=== PATIENT | female | born 1980 | race Caucasian/White ===

== ENCOUNTER 2020-07-06 05:06 | Emergency (ER) | payer SELFPAY ==
[2020-07-06 05:59] LABS: Absolute Lymphocytes (CBC) 2.1 K/uL (0.7-4.9); Basophils % 0.4 % (0-1.3); Lymphocytes % 28.8 % (15.3-44.8); RBC Red Blood Cell Count 4.67 M/uL (3.86-4.86)
[2020-07-06 06:05] LABS: Urine Blood 1+ (Negative); Urine Glucose Negative (Negative); Urine Protein Negative (Negative); Urine pH 6.5 (5.0-7.0)
[2020-07-06] MEDS ORDERED: ONDANSETRON 4 MG/2 ML VIAL ONE ×2 (06:12→08:21)
[2020-07-06] MEDS ORDERED: MORPHINE 4 MG/ML SYR ONE (06:12)
[2020-07-06] MEDS ORDERED: FAMOTIDINE 20 MG/2 ML VIAL IV ONE (06:12)
[2020-07-06] MEDS ORDERED: NA CHLORIDE 0.9% 1,000 ML ONE ×2 (06:12→08:30)
[2020-07-06 06:22] LABS: ALT/SGPT 28 U/L (12-78); AST/SGOT 17 U/L (15-37); Albumin 3.6 g/dL (3.4-5.0); Alkaline Phosphatase 110 U/L (45-117); BUN Blood Urea Nitrogen 13 mg/dL (7-18); Bicarbonate 27 mmol/L (21-32); Bilirubin Direct 0.1 mg/dL (0-0.2); Bilirubin Total 0.4 mg/dL (0.2-1.0); Glucose Level 101 mg/dL (74-106); Lipase 100 U/L (73-393); Potassium 3.2 mmol/L (3.5-5.1); Sodium Level 143 mmol/L (136-145)
[2020-07-06] MEDS ORDERED: KCL 20 MEQ/100 mL IVPB 20 MEQ/100 ML BAG IV ONE (07:07)
--- NOTE | 2020-07-06 08:13 | EDPHYS ---
Physician Documentation [facility] Name: Isa Suarez Age: 39 yrs Sex: Female : 1980 Arrival Date: 07/06/2020 Time: 05:09 Bed 20 Private MD: FINESSE Physician Luis F Bhatt HPI: 07/06 05:46 This 39 yrs old Female presents to ER via Ambulatory with complaints of ma2 Nausea/Vomiting/Diarrhea. 05:46 The patient presents to the emergency department with nausea, vomiting, diarrhea. ma2 Onset: The symptoms/episode began/occurred gradually, 1 day(s) ago. Associated signs and symptoms: Pertinent negatives: belching, diarrhea, fever, GI bleeding. Severity of symptoms: At their worst the symptoms were moderate in the emergency department the symptoms are unchanged. The patient has experienced similar episodes in the past. 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 - Social history:: Smoking status: Patient reports the use of cigarette tobacco products, smokes one-half pack cigarettes per day. - Family history:: not pertinent. ROS: 05:46 Constitutional: Negative for fever, chills, and weight loss. ma2 05:46 All other systems are negative. Exam: 05:46 Constitutional: This is a well developed, well nourished patient who is awake, alert, ma2 and in no acute distress. Neck: Trachea midline, no thyromegaly or masses palpated, and no cervical lymphadenopathy. Supple, full range of motion without nuchal rigidity, or vertebral point tenderness. No Meningismus. Chest/axilla: Normal chest wall appearance and motion. Nontender with no deformity. No lesions are appreciated. Cardiovascular: Regular rate and rhythm with a normal S1 and S2. No gallops, murmurs, or rubs. Normal PMI, no JVD. No pulse deficits. Respiratory: Lungs have equal breath sounds bilaterally, clear to auscultation and percussion. No rales, rhonchi or wheezes noted. No increased work of breathing, no retractions or nasal flaring. Abdomen/GI: mildly tender rlq, otherwise non-tender in other quadrants, with normal bowel sounds. No distension or tympany. No guarding or rebound. Back: No spinal tenderness. No costovertebral tenderness. Full range of motion. Skin: Warm, dry with normal turgor. Normal color with no rashes, no lesions, and no evidence of cellulitis. MS/ Extremity: Pulses equal, no cyanosis. Neurovascular intact. Full, normal range of motion. Neuro: Awake and alert, GCS 15, oriented to person, place, time, and situation. Cranial nerves II-XII grossly intact. Motor strength 5/5 in all extremities. Sensory grossly intact. Cerebellar exam normal. Normal gait. Vital Signs: 05:20 BP 113 / 75; Pulse 95; Resp 18 S; Temp 98.1(O); Pulse Ox 100% on R/A; Weight 45.36 kg bb (R); Height 5 ft. 6 in. (167.64 cm) (R); Pain 7/10; 08:07 BP 104 / 62; Pulse 68; Resp 18; Pulse Ox 100% ; tr6 09:00 BP 101 / 80; Pulse 82; Resp 18; Pulse Ox 96% ; tr6 05:20 Body Mass Index 16.14 (45.36 kg, 167.64 cm) bb MDM: 05:17 Patient medically screened. ma2 08:10 Differential diagnosis: Nonspecific abd pain, gastritis, cholecystitis, pancreatitis, andrew viral gastroenteritis, gastroenteritis. Data reviewed: vital signs, nurses notes, lab test result(s), radiologic studies, CT scan. Data interpreted: library monitor: rate is 68 beats/min, rhythm is regular, Pulse oximetry: on room air is 100 %. Counseling: I had a detailed discussion with the patient and/or guardian regarding: the historical points, exam findings, and any diagnostic results supporting the discharge/admit diagnosis, lab results, radiology results, the need for outpatient follow up, for definitive care, 07/06 05:45 Order name: Basic Metabolic Panel; Complete Time: 06:26 md2 07/06 05:45 Order name: CBC with Diff; Complete Time: 06:19 ma2 07/06 05:45 Order name: Hepatic Function; Complete Time: 06:26 ma2 07/06 05:45 Order name: Lipase; Complete Time: 06:26 ma2 07/06 05:45 Order name: CT Abd/Pelvis - IV Contrast Only ma2 07/06 06:05 Order name: Urine Dipstick-Ancillary EDMS 07/06 05:45 Order name: IV Saline Lock; Complete Time: 05:49 ma2 07/06 05:45 Order name: NPO; Complete Time: 05:49 ma2 07/06 05:46 Order name: Urine Dipstick-Ancillary (obtain specimen); Complete Time: 06:08 ma2 07/06 05:46 Order name: Urine Test (obtain specimen); Complete Time: 06:08 ma2 Administered Medications: 05:57 Drug: Zofran (Ondansetron) 4 mg Route: IVP; Site: left forearm; jm8 07:45 Follow up: Response: No adverse reaction; Nausea unchanged tr6 05:57 Drug: NS 0.9% 1000 ml Route: IV; Rate: 1000 ml; Site: left forearm; jm8 07:45 Follow up: IV Status: Completed infusion; IV Intake: 1000ml tr6 09:09 Follow up: IV Status: Completed infusion; IV Intake: 1000ml tr6 05:57 Drug: Pepcid (famotidine) 20 mg Route: IVP; Site: left forearm; jm8 05:58 Drug: morphine 4 mg Route: IVP; Site: left forearm; jm8 07:44 Follow up: Response: No adverse reaction; Pain is decreased tr6 06:53 Drug: Potassium Chloride 20 mEq Route: IV; Rate: calculated rate; Site: left forearm; jm8 09:09 Follow up: IV Status: Completed infusion; IV Intake: 50ml tr6 08:07 Drug: Zofran (Ondansetron) 4 mg Route: IVP; Site: left forearm; tr6 09:08 Follow up: Response: No adverse reaction; Nausea is decreased tr6 Disposition: 07/06/20 08:12 Discharged to Home. Impression: Vomiting, Diarrhea, unspecified, Hypokalemia. - Condition is Stable. - Discharge Instructions: Diarrhea, Adult, Nausea and Vomiting, Adult, [id number]-[id number], Diarrhea, Adult, Hmrr-yw-Cnyh, Hypokalemia, Food Choices to Help Relieve Diarrhea, Adult. - Prescriptions for Zofran 4 mg Oral Tablet - take 1 tablet by ORAL route every 12 hours As needed; 20 tablet. Pepcid 20 mg Oral Tablet - take 1 tablet by ORAL route once daily; 20 tablet. Bentyl 20 mg Oral Tablet - take 1 tablet by ORAL route every 6 hours As needed; 20 tablet. - Medication Reconciliation Form, Thank You Letter, Antibiotic Education, Prescription Opioid Use, Work release form form. - Follow up: Private Physician; When: 2 - 3 days; Reason: Recheck today's complaints, Continuance of care, Re-evaluation by your physician. Follow up: Cee Juárez; When: 2 - 3 days; Reason: Recheck today's complaints, Continuance of care, Re-evaluation by your physician. - Problem is new. - Symptoms have improved. Signatures: Dispatcher [employer] EDLuis F Ledezma MD MD cha Ballard, Brenda, RN RN Isamar Heredia MD MD md2 Liborio Montoya RN RN 8 Marcelina Rojas RN RN tr6 Corrections: (The following items were deleted from the chart) 09:43 08:12 07/06/2020 08:12 Discharged to Home. Impression: Vomiting; Diarrhea, unspecified; tr6 Hypokalemia. Condition is Stable. Discharge Instructions: Food Choices to Help Relieve Diarrhea, Adult, Diarrhea, Adult, Nausea and Vomiting, Adult, Obxj-le-Optz, Diarrhea, Adult, Ojpe-do-Oevq, Hypokalemia. Prescriptions for Zofran 4 mg Oral Tablet - take 1 tablet by ORAL route every 12 hours As needed; 20 tablet, Pepcid 20 mg Oral Tablet - take 1 tablet by ORAL route once daily; 20 tablet, Bentyl 20 mg Oral Tablet - take 1 tablet by ORAL route every 6 hours As needed; 20 tablet. and Forms are Medication Reconciliation Form, Thank You Letter, Antibiotic Education, Prescription Opioid Use. Follow up: Private Physician; When: 2 - 3 days; Reason: Recheck today's complaints, Continuance of care, Re-evaluation by your physician. Follow up: Cee Juárez; When: 2 - 3 days; Reason: Recheck today's complaints, Continuance of care, Re-evaluation by your physician. Problem is new. Symptoms have improved. andrew
--- NOTE | 2020-07-06 08:13 | ER ---
Nurse's Notes [facility] Name: Isa Suarez Age: 39 yrs Sex: Female : 1980 Arrival Date: 07/06/2020 Time: 05:09 Bed 20 Private MD: Diagnosis: Vomiting;Diarrhea, unspecified;Hypokalemia Presentation: 07/06 05:20 Chief complaint: Patient states: she has been having diarrhea x 2 days and woke up this bb morning with uncontrollable vomiting. Coronavirus screen: At this time, the client does not indicate any symptoms associated with coronavirus-19. Ebola Screen: No symptoms or risks identified at this time. Initial Sepsis Screen: Does the patient meet any 2 criteria? No. Patient's initial sepsis screen is negative. Does the patient have a suspected source of infection? No. Patient's initial sepsis screen is negative. Risk Assessment: Do you want to hurt yourself or someone else? Patient reports no desire to harm self or others. Onset of symptoms was July 03, 2020. 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 - Social history:: Smoking status: Patient reports the use of cigarette tobacco products, smokes one-half pack cigarettes per day. - Family history:: not pertinent. Screenin:36 Abuse screen: Denies threats or abuse. Denies injuries from another. Nutritional jm8 screening: No deficits noted. Tuberculosis screening: No symptoms or risk factors identified. Fall Risk None identified. Assessment: 05:34 General: Appears in no apparent distress. uncomfortable, Behavior is calm, cooperative, jm8 appropriate for age. Pain:. 05:34 Pain: Complains of pain in abdomen Pain currently is 7 out of 10 on a pain scale. Pain jm8 began 2-3 days ago. Noted to be grimacing, guarding. Neuro: No deficits noted. Level of Consciousness is awake, alert, obeys commands, Oriented to person, place, time. Cardiovascular: No deficits noted. Respiratory: No deficits noted. Airway is patent Trachea midline Respiratory effort is even, unlabored, Respiratory pattern is regular. GI: Abdomen is flat, Pt is actively vomiting dry heaving Reports lower abdominal pain, upper abdominal pain, diarrhea, nausea, Pain is 7 out of 10 on a pain scale. vomiting, since 2 days ago. : No deficits noted. EENT: No deficits noted. Derm: No deficits noted. Musculoskeletal: No deficits noted. 07:15 Reassessment: assumed care of pt resting comfortably in bed. pt states that IV site is tr6 painful where potassium is running. infusion slowed. pt tolerated well. 09:09 Reassessment: Patient appears in no apparent distress at this time. Patient and/or tr6 family updated on plan of care and expected duration. Pain level reassessed. Patient is alert, oriented x 3, equal unlabored respirations, skin warm/dry/pink. discharge instructions reviewed with pt. pt verbalized understanding. Vital Signs: 05:20 BP 113 / 75; Pulse 95; Resp 18 S; Temp 98.1(O); Pulse Ox 100% on R/A; Weight 45.36 kg bb (R); Height 5 ft. 6 in. (167.64 cm) (R); Pain 7/10; 08:07 BP 104 / 62; Pulse 68; Resp 18; Pulse Ox 100% ; tr6 09:00 BP 101 / 80; Pulse 82; Resp 18; Pulse Ox 96% ; tr6 05:20 Body Mass Index 16.14 (45.36 kg, 167.64 cm) ED Course: 05:09 Patient arrived in ED. bp1 05:17 Isamar Zuniga MD is Attending Physician. ma2 05:28 Triage completed. bb 05:30 Arm band placed on Patient placed in an exam room, on a stretcher, on pulse oximetry. bb Family accompanied patient. 05:37 Patient has correct armband on for positive identification. Bed in low position. Call jm8 light in reach. Side rails up X2. Adult w/ patient. 06:07 Inserted saline lock: 20 gauge in left forearm, using aseptic technique. jm8 06:48 CT Abd/Pelvis - IV Contrast Only In Process Unspecified. EDMS 07:17 Attending Physician role handed off by Isamar Zuniga MD andrew 07:17 Luis F Bhatt MD is Attending Physician. andrew 07:46 No provider procedures requiring assistance completed. tr6 08:12 Cee Juárez MD is Referral Physician. andrew 09:08 IV discontinued. tr6 Administered Medications: 05:57 Drug: Zofran (Ondansetron) 4 mg Route: IVP; Site: left forearm; 8 07:45 Follow up: Response: No adverse reaction; Nausea unchanged tr6 05:57 Drug: NS 0.9% 1000 ml Route: IV; Rate: 1000 ml; Site: left forearm; jm8 07:45 Follow up: IV Status: Completed infusion; IV Intake: 1000ml tr6 09:09 Follow up: IV Status: Completed infusion; IV Intake: 1000ml tr6 05:57 Drug: Pepcid (famotidine) 20 mg Route: IVP; Site: left forearm; jm8 05:58 Drug: morphine 4 mg Route: IVP; Site: left forearm; jm8 07:44 Follow up: Response: No adverse reaction; Pain is decreased tr6 06:53 Drug: Potassium Chloride 20 mEq Route: IV; Rate: calculated rate; Site: left forearm; jm8 09:09 Follow up: IV Status: Completed infusion; IV Intake: 50ml tr6 08:07 Drug: Zofran (Ondansetron) 4 mg Route: IVP; Site: left forearm; tr6 09:08 Follow up: Response: No adverse reaction; Nausea is decreased tr6 Intake: 07:45 IV: 1000ml; Total: 1000ml. tr6 09:09 IV: 50ml; Total: 1050ml. tr6 09:09 IV: 1000ml; Total: 2050ml. tr6 Outcome: 08:12 Discharge ordered by . andrew 09:08 Discharged to home ambulatory. tr6 09:08 Condition: good 09:08 Discharge instructions given to patient. 09:43 Patient left the ED. tr6 Signatures: Dispatcher [employer] EDMS Luis F Bhatt MD MD cha Ballard, Brenda, RN RN bb Alzahri, Mohammad, MD MD [facility] Hetal Thorpe Joseph RN RN [facility] Marcelina Rojas RN RN tr6
--- NOTE | 2020-07-06 08:27 | RAD REPORT ---
EXAM DESCRIPTION: CTAbdomen Pelvis W Contrast - 07/06/2020 6:48 am CLINICAL HISTORY: Abdominal pain. ABD PAIN COMPARISON: Abdomen Pelvis W Contrast dated 04/26/2016; Abdomen Pelvis W Contrast dated 06/17/2015 TECHNIQUE: Biphasic CT imaging of the abdomen and pelvis was performed with 100 ml non-ionic IV cont rast. All CT scans are performed using dose optimization technique as appropriate and may include automated exposure control or mA/KV adjustment according to patient size. FINDINGS: The lung bases are clear. The liver, spleen, pancreas, adrenal glands and right kidney are within normal limits. Tiny punctate nonobstructing left renal calculus. No bowel obstruction, free air, free fluid or abscess. The appendix is normal. No evidence of signi ficant lymphadenopathy. No suspicious bony findings. IMPRESSION: No acute intra-abdominal or pelvic finding. Punctate nonobstructing renal calculus.
[2020-07-06 10:39] VITALS: TEMP 98.1
[2020-07-06 10:40] VITALS: BP 101/80; O2SAT 96
== END 2020-07-06 09:43 | disposition home or self-care (01) ==
LOC: ER 05:06
DX: E87.6 Hypokalemia (principal); R19.7 Diarrhea, unspecified; F17.210 Nicotine dependence, cigarettes, uncomplicated; Z88.1 Allergy status to other antibiotic agents; Z88.8 Allergy status to other drugs, medicaments and biological substances
CPT/HCPCS: 36415; 74177; 80048; 80076; 81003; 83690; 85025; 96361; 96365; 96366; 96375; 99284; J2405; J3480; J7030; Q9967

== ENCOUNTER 2021-03-07 02:36 | Emergency (ER) | payer SELFPAY ==
[2021-03-07] MEDS ORDERED: FAMOTIDINE 20 MG/2 ML VIAL IV ONE (03:22)
[2021-03-07] MEDS ORDERED: MORPHINE 4 MG/ML SYR ONE (03:22)
[2021-03-07] MEDS ORDERED: ONDANSETRON 4 MG/2 ML VIAL ONE (03:22)
[2021-03-07] MEDS ORDERED: NA CHLORIDE 0.9% 1,000 ML ONE (03:22)
[2021-03-07 03:25] LABS: Absolute Lymphocytes (CBC) 0.2 K/uL (0.7-4.9); Hematocrit 41.2 % (36.0-45.0); Lymphocytes % 2.2 % (15.3-44.8); MPV 8.9 fL (7.6-11.3); RBC Red Blood Cell Count 4.54 M/uL (3.86-4.86)
[2021-03-07 03:42] LABS: ALT/SGPT 19 U/L (12-78); AST/SGOT 13 U/L (15-37); Albumin 3.7 g/dL (3.4-5.0); Alkaline Phosphatase 92 U/L (45-117); BUN Blood Urea Nitrogen 10 mg/dL (7-18); Bicarbonate 25 mmol/L (21-32); Bilirubin Direct < 0.1 mg/dL (0-0.2); Bilirubin Total 0.3 mg/dL (0.2-1.0); Glucose Level 117 mg/dL (74-106); Lipase 44 U/L (73-393); Potassium 3.5 mmol/L (3.5-5.1); Protein, Total 7.2 g/dL (6.4-8.2); Sodium Level 136 mmol/L (136-145)
[2021-03-07 04:00] LABS: Urine Blood 1+ (Negative); Urine Glucose Negative (Negative); Urine Protein Negative (Negative); Urine pH 6.5 (5.0-7.0)
[2021-03-07 04:14] LABS: Blood Morphology Comment NOT SEEN (NOT SEEN); Platelet Estimate ADEQ
[2021-03-07] MEDS ORDERED: KETOROLAC 30 MG/ML INJ ONE (05:38)
--- NOTE | 2021-03-07 08:02 | EDPHYS ---
Physician Documentation [facility] Name: Isa Suarez Age: 40 yrs Sex: Female : 1980 Arrival Date: 03/07/2021 Time: 02:39 Bed 14 Private MD: ED Physician Haseeb Nevarez HPI: 03/07 03:09 This 40 yrs old Female presents to ER via Ambulatory with complaints of +[id number], Body mh7 aches, Fever, Vomiting. 03:09 The patient presents to the emergency department with nausea, that is moderate, mh7 vomiting, that is intermittent, described as clear fluid. Onset: The symptoms/episode began/occurred last night. 03:09 Possible causes: Covid. mh7 03:09 The symptoms are aggravated by nothing. The symptoms are alleviated by nothing. mh7 Associated signs and symptoms: Pertinent positives: fever, nausea, vomiting, Body aches, Pertinent negatives: abdominal pain, anorexia, belching, constipation, dysuria, flatulence, GI bleeding, hematuria, vaginal discharge. Severity of symptoms: At their worst the symptoms were moderate last night, in the emergency department the symptoms are unchanged. 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 Flu vaccine is not up to date. - Social history:: Smoking status: Patient reports the use of cigarette tobacco products, smokes one pack cigarettes per day. ROS: 03:09 Eyes: Negative for injury, pain, redness, and discharge, ENT: Negative for injury, mh7 pain, and discharge, Neck: Negative for injury, pain, and swelling, Cardiovascular: Negative for chest pain, palpitations, and edema, Respiratory: Negative for shortness of breath, cough, wheezing, and pleuritic chest pain, Back: Negative for injury and pain, : Negative for injury, bleeding, discharge, and swelling, MS/Extremity: Negative for injury and deformity, Skin: Negative for injury, rash, and discoloration, Neuro: Negative for headache, weakness, numbness, tingling, and seizure, Psych: Negative for depression, anxiety, suicide ideation, homicidal ideation, and hallucinations, Allergy/Immunology: Negative for hives, rash, and allergies, Endocrine: Negative for neck swelling, polydipsia, polyuria, polyphagia, and marked weight changes, Hematologic/Lymphatic: Negative for swollen nodes, abnormal bleeding, and unusual bruising. Exam: 03:09 Head/Face: Normocephalic, atraumatic. Eyes: Pupils equal round and reactive to light, mh7 extra-ocular motions intact. Lids and lashes normal. Conjunctiva and sclera are non-icteric and not injected. Cornea within normal limits. Periorbital areas with no swelling, redness, or edema. Neck: Trachea midline, no thyromegaly or masses palpated, and no cervical lymphadenopathy. Supple, full range of motion without nuchal rigidity, or vertebral point tenderness. No Meningismus. Chest/axilla: Normal chest wall appearance and motion. Nontender with no deformity. No lesions are appreciated. Cardiovascular: Regular rate and rhythm with a normal S1 and S2. No gallops, murmurs, or rubs. Normal PMI, no JVD. No pulse deficits. Respiratory: Lungs have equal breath sounds bilaterally, clear to auscultation and percussion. No rales, rhonchi or wheezes noted. No increased work of breathing, no retractions or nasal flaring. Abdomen/GI: Soft, non-tender, with normal bowel sounds. No distension or tympany. No guarding or rebound. No evidence of tenderness throughout. Back: No spinal tenderness. No costovertebral tenderness. Full range of motion. Skin: Warm, dry with normal turgor. Normal color with no rashes, no lesions, and no evidence of cellulitis. MS/ Extremity: Pulses equal, no cyanosis. Neurovascular intact. Full, normal range of motion. Neuro: Awake and alert, GCS 15, oriented to person, place, time, and situation. Cranial nerves II-XII grossly intact. Motor strength 5/5 in all extremities. Sensory grossly intact. Cerebellar exam normal. Normal gait. Psych: Awake, alert, with orientation to person, place and time. Behavior, mood, and affect are within normal limits. 03:09 Constitutional: The patient appears in no acute distress, alert, awake, uncomfortable. Vital Signs: 02:46 BP 122 / 73; Pulse 110; Resp 22; Temp 100.2(O); Pulse Ox 98% on R/A; Weight 44.45 kg; tw5 Height 5 ft. 6 in. (167.64 cm); Pain 10/10; 02:59 BP 123 / 70; Pulse 96; Resp 18; Pulse Ox 100% on R/A; ic1 03:00 Temp 99(O); ic1 04:51 BP 118 / 72; Pulse 87; Resp 16; Pulse Ox 97% on R/A; ic1 06:10 BP 112 / 65; Pulse 100; Resp 18; Pulse Ox 99% on R/A; ic1 02:46 Body Mass Index 15.82 (44.45 kg, 167.64 cm) tw5 MDM: 07:02 Patient medically screened. rn 07:24 ED course: Patient signed out to me by Dr. Horn this morning. Patient pending CT rn abdomen pelvis and plan for Dr. Horn was to discharge if no acute findings. 07:59 Differential diagnosis: viral gastroenteritis, gastroenteritis, COVID, viral syndrome, rn kidney stone. Data reviewed: vital signs, nurses notes, lab test result(s), radiologic studies, CT scan, and as a result, I will discharge patient. Data interpreted: Pulse oximetry: on room air is 99 %. Interpretation: normal. Counseling: I had a detailed discussion with the patient and/or guardian regarding: the historical points, exam findings, and any diagnostic results supporting the discharge/admit diagnosis, lab results, radiology results, the need for outpatient follow up, to return to the emergency department if symptoms worsen or persist or if there are any questions or concerns that arise at home. Special discussion: I discussed with the patient/guardian in detail that at this point there is no indication for admission to the hospital. It is understood, however, that if the symptoms persist or worsen the patient needs to return immediately for re-evaluation. 03/07 03:06 Order name: Basic Metabolic Panel; Complete Time: 04:45 03/07 03:06 Order name: CBC with Diff; Complete Time: 04:45 03/07 03:06 Order name: Hepatic Function; Complete Time: 04:45 03/07 03:06 Order name: Lipase; Complete Time: 04:45 /05 03:25 Order name: Manual Differential; Complete Time: 04:45 EDMS 03/07 03:59 Order name: Urine Dipstick-Ancillary; Complete Time: 04:45 [facility] 03/07 03:06 Order name: IV Saline Lock; Complete Time: 03:17 7 03/07 03:06 Order name: Labs collected and sent; Complete Time: 03:17 [facility] 03/07 04:48 Order name: CT Abd/Pelvis - IV Contrast Only [facility] 03/07 03:06 Order name: Urine Dipstick-Ancillary (obtain specimen); Complete Time: 07:44 7 Administered Medications: 03:23 Drug: NS 0.9% 1000 ml Route: IV; Rate: 1000 ml; Site: right antecubital; ic1 03:30 Drug: morphine 4 mg Route: IVP; Site: right antecubital; ic1 03:30 Drug: Zofran (Ondansetron) 4 mg Route: IVP; Rate: bolus; Site: right antecubital; ic1 03:30 Drug: Pepcid (famotidine) 20 mg Route: IVP; Site: right antecubital; ic1 05:40 Drug: Ketorolac 15 mg Route: IVP; Site: right antecubital; ic1 Disposition Summary: 03/07/21 08:01 Discharge Ordered Location: Home rn Problem: new rn Symptoms: have improved rn Condition: Stable rn Diagnosis - SARS-associated coronavirus as the cause of diseases classified elsewhere rn Followup: rn - With: Private Physician - When: As needed - Reason: Recheck today's complaints, Re-evaluation by your physician Discharge Instructions: - Discharge Summary Sheet rn - COVID-19 rn - 10 Things You Can Do to Manage Your COVID-19 Symptoms at Home - [facility] rn - Viral Illness, Adult rn - Prevent the Spread of COVID-19 if You Are Sick - [facility] rn Forms: - Medication Reconciliation Form rn - Thank You Letter rn - Antibiotic machine turner - Prescription Opioid Use rn - Family Work Release ll1 Prescriptions: - ondansetron 4 mg Oral tablet,disintegrating - take 1 tablet by ORAL route every 8 hours As needed; 15 tablet; Refills: 0, rn Product Selection Permitted - Cyclobenzaprine 10 mg Oral Tablet - take 1 tablet by ORAL route every 8 hours As needed; 10 tablet; Refills: 0, rn Product Selection Permitted Signatures: Dispatcher [employer] EDMS Haseeb Nevarez MD MD rn Holmes, Maurice, MD MD [facility] Marcelina Coburn 5 Milka Mantilla RN RN ic1 Corrections: (The following items were deleted from the chart) 02:50 02:49 PSHx: None; tw 07:25 07:24 ED course: Patient signed out to me by Dr. Horn this morning. Patient. rn rn
--- NOTE | 2021-03-07 08:02 | ER ---
Nurse's Notes [facility] Name: Isa Suarez Age: 40 yrs Sex: Female : 1980 Arrival Date: 03/07/2021 Time: 02:39 Bed 14 Private MD: Diagnosis: SARS-associated coronavirus as the cause of diseases classified elsewhere Presentation: 03/07 02:46 Chief complaint: Patient states: " My whole body aches, my hips feel like they are on tw5 fire. Vomiting and nausea that started around 8 PM yesterday. My head hurts.". Chief complaint: Patient states she did a home test today that was positive. Coronavirus screen: Vaccine status: Patient reports being unvaccinated. Ebola Screen: Patient negative for fever greater than or equal to 101.5 degrees Fahrenheit, and additional compatible Ebola Virus Disease symptoms Patient denies exposure to infectious person. Patient denies travel to an Ebola-affected area in the 21 days before illness onset. Initial Sepsis Screen: Does the patient meet any 2 criteria? HR > 90 bpm. Does the patient have a suspected source of infection? No. Patient's initial sepsis screen is negative. Risk Assessment: Do you want to hurt yourself or someone else? Patient reports no desire to harm self or others. Onset of symptoms was March 06, 2021 at 20:00. 02:46 Method Of Arrival: Ambulatory tw 02:46 Acuity: VON 3 tw5 Triage Assessment: 02:49 General: Appears uncomfortable, ill, Behavior is restless. Pain: Pain currently is 10 tw5 out of 10 on a pain scale. GI: Reports nausea, vomiting. 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 Flu vaccine is not up to date. - Social history:: Smoking status: Patient reports the use of cigarette tobacco products, smokes one pack cigarettes per day. Screenin:50 Abuse screen: Denies threats or abuse. Denies injuries from another. Nutritional tw5 screening: No deficits noted. Tuberculosis screening: No symptoms or risk factors identified. Fall Risk No fall in past 12 months (0 pts). Assessment: 03:00 General: Appears in no apparent distress. uncomfortable, Behavior is calm, cooperative. ic1 Pain: Complains of pain in abdomen, right arm, left arm, right leg, left leg, back of left arm, back of right arm, posterior chest, back of left leg, back of right leg and back. Neuro: No deficits noted. Cardiovascular: No deficits noted. Respiratory: No deficits noted. GI: Abdomen is round non-distended. : No deficits noted. EENT: No deficits noted. Derm: No deficits noted. Musculoskeletal: No deficits noted. 05:31 Reassessment: Patient states symptoms have not improved. ic1 Vital Signs: 02:46 BP 122 / 73; Pulse 110; Resp 22; Temp 100.2(O); Pulse Ox 98% on R/A; Weight 44.45 kg; tw5 Height 5 ft. 6 in. (167.64 cm); Pain 10/10; 02:59 BP 123 / 70; Pulse 96; Resp 18; Pulse Ox 100% on R/A; ic1 03:00 Temp 99(O); ic1 04:51 BP 118 / 72; Pulse 87; Resp 16; Pulse Ox 97% on R/A; ic1 06:10 BP 112 / 65; Pulse 100; Resp 18; Pulse Ox 99% on R/A; ic1 02:46 Body Mass Index 15.82 (44.45 kg, 167.64 cm) tw5 ED Course: 02:39 Patient arrived in ED. wm 02:48 Triage completed. tw5 02:49 Arm band placed on right wrist. tw5 02:51 Patient has correct armband on for positive identification. tw5 02:52 Luis Horn MD is Attending Physician. mh7 03:18 Inserted saline lock: 20 gauge in right antecubital area, using aseptic technique. ic1 03:18 CBC with Diff Sent. ic1 03:18 Basic Metabolic Panel Sent. ic1 03:18 Hepatic Function Sent. ic1 03:18 Lipase Sent. ic1 05:31 CT Abd/Pelvis - IV Contrast Only In Process Unspecified. EDMS 06:52 Door closed. Noise minimized. Lights dimmed. Warm blanket given. ic1 07:02 Attending Physician role handed off by Luis Horn MD rn 07:02 Haseeb Nevarez MD is Attending Physician. rn 07:13 Hanna Cabello RN is Primary Nurse. jh6 07:23 Primary Nurse role handed off by Hanna Cabello RN cb5 07:23 Jyothi Branch, RN is Primary Nurse. 5 08:33 No provider procedures requiring assistance completed. phillips 08:34 IV discontinued, intact, Pressure dressing applied. phillips Administered Medications: 03:23 Drug: NS 0.9% 1000 ml Route: IV; Rate: 1000 ml; Site: right antecubital; ic1 03:30 Drug: morphine 4 mg Route: IVP; Site: right antecubital; ic1 03:30 Drug: Zofran (Ondansetron) 4 mg Route: IVP; Rate: bolus; Site: right antecubital; ic1 03:30 Drug: Pepcid (famotidine) 20 mg Route: IVP; Site: right antecubital; ic1 05:40 Drug: Ketorolac 15 mg Route: IVP; Site: right antecubital; ic1 Outcome: 08:01 Discharge ordered by MD. rn 08:33 Discharged to home ambulatory. phillips 08:33 Condition: good 08:33 Discharge instructions given to patient, Prescriptions given X 2. 08:34 Patient left the ED. phillips Signatures: Dispatcher [employer] EDMS Haseeb Nevarez MD MD rn Holmes, Maurice, MD MD Heather Bai Marcelina Coburn [facility] Hanna Cabello RN RN jh6 Karen Zheng RN RN ha Creggett, Iesha, RN RN ic1 Jyothi Branch, RN RN 5 Corrections: (The following items were deleted from the chart) 02:50 02:49 PSHx: None; tw5 tw5
[2021-03-07 08:55] VITALS: TEMP 99
[2021-03-07 08:58] VITALS: BP 112/65; O2SAT 99
--- NOTE | 2021-03-07 14:02 | RAD REPORT ---
EXAM DESCRIPTION: CT - Abdomen Pelvis W Contrast - 03/07/2021 7:35 am CLINICAL HISTORY: 40 years Female NAUSEA / VOMITING TECHNIQUE: Non contrast and contrast enhanced CT of the abdomen and pelvis with coronal and sagittal reformats. All CT scans at this facility use dose modulation, iterative reconstruction, and/or weigh t based dosing when appropriate to reduce radiation dose to as low as reasonably achievable. COMPARISON: 07/06/2020. FINDINGS: Lower chest: Lung bases are clear. Abdomen/Pelvis: Liver: No focal lesion. Gallbladder: No calcified stone. Pancreas: Within normal limits. Spleen: Within normal limits. Kidney: Unchanged 2 mm nonobstructing calyceal stone in the left kidney. No focal lesion. Adrenal glands: Within normal limits. Vascular structures: Unremarkable. Bowel: No bowel distention. Appendix: Normal. Peritoneum: No free fluid or free air. Lymph Nodes: No lymphadenopathy. Reproductive: Status post hysterectomy. Urinary bladder: Unremarkable. Osseous structures: Unremarkable. Soft tissues: Unremarkable. IMPRESSION: Unchanged 2 mm nonobstructing calyceal stone in the left kidney. Electronically signed by: Mark Red MD 03/07/2021 7:30 AM APPLIED STATISTICIAN Due to temporary technical issues with the PACS/Fluency reporting system, reports are being signed by the in house radiologist without review as a courtesy to ensure prompt reporting. The interpreting r adiologist is fully responsible for the content of the report.
== END 2021-03-07 08:34 | disposition home or self-care (01) ==
LOC: ER 02:36
DX: U07.1 COVID-19 (principal); F17.210 Nicotine dependence, cigarettes, uncomplicated; Z88.1 Allergy status to other antibiotic agents
CPT/HCPCS: 36415; 74177; 80048; 80076; 81003; 83690; 85025; 96374; 96375; 99284; J2405; J7030; Q9967

== ENCOUNTER → 2023-05-20 | Emergency (ER) | payer SELFPAY ==
[~2023-05-20] MED LIST: KETOROLAC 30 MG/ML INJ ONE; NA CHLORIDE 0.9% 1,000 ML ONE; ONDANSETRON 4 MG/2 ML VIAL ONE
--- OUTSIDE RECORDS SUMMARY | 2023-05-20 15:16 | XMS REPORT | Continuity of Care Document ---
Author Name Unknown Address [address] [place] [address] [facility] [address] [place] [address] Care Team Providers Care Vinyl Dipper Name Role Phone PCP, PATIENT DOES NOT HAVE A Primary Care Physic megan Unavailable Kj Salgado Attending Clinician Kj KUMAR Attending Clinician Unavailable Kj KUMAR Admitting Clinician Unavailable Allergies, Adverse Reactions, Alerts Allergy Name Allergy Type Status Severity Reaction(s) Onset Date Inactive Date Treating Clinician Comments Source NO KNOWN ALLERGIE S Drug Class Active [facility] Social History Social Habit Start Date Stop Date Quantity Comments Source Exposure to SARS-CoV-2 (event) 2022-05-05 00:00:00 2022-05-15 11:18:00 Not sure [facility] Sex Assigned At 1980 00:00:00 1980 00:00:00 [facility] Smoking Status Start Date Stop Date Source Tobacco smoking consumption unknown [facility] Medications Ordered Medication Name Filled Medication Name Start Date Stop Date Current Medication? Ordering Clinician Indication Dosage Frequency Signature (SIG) Comments Components Source ondansetron (ZOFRAN (PF)) injection 4 mg 05-15 21:45: 00 05-15 20:45 :00 No 4mg 4 mg, Slow IV Push, ONCE, 1 dose, On Fri05/15/22 at 1645, ABE [facility] ketorolac (TORADOL) injection 15 mg 05-15 21:45: 00 05-15 20:47 :00 No 15mg 15 mg, Slow IV Push, ONCE, 1 dose, On Fri05/15/22 at 1645, ABE [facility] iopamidol (ISOVUE 370-500 mL) injection 74 mL 05-15 19:30: 00 05-15 19:30 :00 No [id number] 74mL 74 mL, Intravenou s, ONCE, 1 dose, On Fri05/15/22 at 1430, Routine [facility] FENTanyl PF (SUBLIMAZE (PF)) injection 50 mcg 05-15 18:00: 00 05-15 17:02 :00 No 50ug 50 mcg, Slow IV Push, ONCE, 1 dose, On Fri05/15/22 at 1300, Routine [facility] NaCl 0.9% (NS) bolus infusion 1,000 mL 05-15 16:45: 00 05-15 17:52 :00 No 1000mL at 999 mL/hr, 1,000 mL, IV Infusion, ONCE, 1 dose, On Fri05/15/22 at 1145, STAT [facility] ondansetron (ZOFRAN (PF)) injection 4 mg 05-15 16:45: 00 05-15 16:09 :00 No 4mg 4 mg, Slow IV Push, ONCE, 1 dose, On Fri05/15/22 at 1145, ABE [facility] morpHINE (4 mg/mL) injection 4 mg 05-15 16:45: 00 05-15 16:10 :00 No 4mg 4 mg, Slow IV Push, ONCE, 1 dose, On Fri05/15/22 at 1145, STAT [facility] ondansetron 4 mg disintegrat ing tablet 05-15 00:00: 00 Yes [id number] 4mg Take 1 tablet by mouth every 8 (eight) hours as needed for Nausea and Vomiting (N/V). [facility] ibuprofen 400 mg tablet 05-15 00:00: 00 Yes [id number] 400mg Take 1 tablet by mouth every 8 (eight) hours as needed for Pain (scale 4-6). [facility] Vital Signs Vital Name Observation Time Observation Value Bridgette cardoza Systolic blood pressure 2022-05-15 21:00:00 116 mm[Hg] [facility] Diastolic blood pressure 2022-05-15 21:00:00 51 mm[Hg] [facility] hospital Heart rate 2022-05-15 21:00:00 62 /min [facility] Respiratory rate 2022-05-15 21:00:00 16 /min [facility] Oxygen saturation in Arterial blood by Pulse oximetry 2022-05-15 21:00:00 99 /min [facility] Body temperature 2022-05-15 18:00:00 36.83 Tati [facility] Body height 2022-05-15 15:26:00 167.6 cm [facility] Body weight 2022-05-15 15:26:00 45.36 kg [facility] BMI 2022-05-15 15:26:00 16.14 kg/m2 [facility] Procedures Procedure Date / Time Performed Performing Clinicia n Source EKG-12 LEAD 2022-05-15 21:02:00 [facility] ABDOMEN PELVIS W CONTRAST 2022-05-15 18:42:33 Kj Kumar [facility] LIPASE 2022-05-15 16:08:00 [facility] MAGNESIUM 2022-05-15 16:08:00 [facility] TROPONIN I 2022-05-15 16:08:00 [facility] COMP. METABOLIC PANEL ([id number]) 2022-05-15 16:08:00 Kj Kumar [facility] CBC WITH DIFF 2022-05-15 16:08:00 Kj Kumar [facility] URINALYSIS 2022-05-15 16:08:00 José Kj Deng [facility] NOTICE OF PRIVACY PRACTICES 2022-05-15 15:19:51 Doctor Unassigned, [place] [facility] Encounters Start Date/Time End Date/Time Encounter Type Admission Type Attending [facility] Care Facility Care Department Encounter ID Source 2022-05-15 10:27:00 2022-05-15 16:03:00 Emergency José, K Sowmya [facility] [id number] [facility] 2022-05-15 10:27:00 2022-05-15 16:03:00 Emergency X JOSÉ, Kj [facility] ERT [id number] [facility] Results Test Description Test Time Test Comments Results Result Co mments Source [facility] ([id number])2022-05-15 16:51:57* Test Item Value Reference Range Interpretation Comme nts NA (test code = 0432405040) 139 mmol/L 135-145 K (test code = 6891271650) 4.1 mmol/L 3.5-5.0 CL (test code = 1674830745) 102 mmol/L 98-108 CO2 TOTAL (test code = 8606768540) 30 mmol/L 23-31 AGAP (test code = 1696181629) 7 2-16 BUN (test code = 8751073062) 9 mg/dL 7-23 GLUCOSE (test code = 4831628692) 92 mg/dL 70-110 CREATININE (test code = 7593403143) 0.70 mg/dL 0.50-1.04 TOTAL BILI (test code = 0311543949) 0.7 mg/dL 0.1-1.1 CALCIUM (test code = 4617367305) 9.2 mg/dL 8.6-10.6 T PROTEIN (test code = 5993915320) 7.3 g/dL 6.3-8.2 ALBUMIN (test code = 8628100817) 4.5 g/dL 3.5-5.0 ALK PHOS (test code = 2831695590) 66 U/L 34-122 ALTv (test code = 1742-6) 15 U/L 5-35 AST(SGOT) (test code = 9700615323) 23 U/L 13-40 eGFR (test code = 0923639562) 92.7 mL/min/1.73m2 TOM (test code = TOM) Association of Glomerular Filtration Rate (GFR) and Staging of Kidney Disease* + + +- +| GFR (mL/min/1.73 m2) ?| With Kidney Damage ?| ?Without Kidney Damage+ ------+ ----+ ------+| ?>90 ?| ?Stage one ?| ? Normal ?+ -+ + -+| ?60-89 ?| ?Stage two ?| ? Decreased GFR ? + + +- +| ?30-59 ?| ?Stage three ?| ? Stage three ? + + +- +| ?15-29 ?| ?Stage four ? | ? Stage four ?+ -+ + -+| ?<15 (or dialysis) ? ?| ?Stage five ? | ? Stage five ?+ -+ + -+ *Each stage assumes the associated GFR level has been in effect for at least three months. ?Stages 1 to 5, with or without kidney disease, indicate chronic kidney disease. Notes: Determination of stages one and two (with eGFR >59mL/min/1.73 m2) requires estimation of kidney damage for at least three months as defined by structural or functional abnormalities of the kidney, manifested by either:Pathological abnormalities or Markers of kidney damage (including abnormalities in the composition of the blood or urine or abnormalities in imaging tests). [facility] 16:51:57* Test Item Value Reference Range Interpretation Comme nts MAGNESIUM (test code = 6994924357) 1.9 mg/dL 1.7-2.4 Lab Interpretation (test cod e = 94356-9) Normal [facility] 16:51:37* Test Item Value Reference Range Interpretation Comme nts LIPASE (test code = 8424921946) 47 U/L 0-220 Lab Interpretation (test cod e = 59645-5) Normal [facility] WITH [id number] 16:32:32* Test Item Value Reference Range Interpretation Comme nts WBC (test code = 6690-2) 5.99 See_Comment [Automated messa ge] The system which generated this result transmitted reference range: 4.30 - 11.10 10*3/?L. The reference range was not used to interpret this result as normal/abnormal. RBC (test code = 789-8) 5.22 See_Comment [Automated messa ge] The system which generated this result transmitted reference range: 3.93 - 5.25 10*6/?L. The reference range was not used to interpret this result as normal/abnormal. HGB (test code = 718-7) 16.4 g/dL 11.6-15.0 H HCT (test code = 4544-3) 47.4 % 35.7-45.2 H MCV (test code = 787-2) 90.8 fL 80.6-95.5 MCH (test code = 785-6) 31.4 pg 25.9-32.8 MCHC (test code = 786-4) 34.6 g/dL 31.6-35.1 RDW-SD (test code = 89402-2) 38.8 fL 39.0-49.9 L RDW-CV (test code = 788-0) 11.6 % 12.0-15.5 L PLT (test code = 777-3) 188 See_Comment [Automated messa ge] The system which generated this result transmitted reference range: 166 - 358 10*3/?L. The reference range was not used to interpret this result as normal/abnormal. MPV (test code = 91065-6) 10.4 fL 9.5-12.9 NRBC/100 WBC (test code = 6433637306) 0.0 See_Comment [Automated [employer] ssage] The system which generated this result transmitted reference range: 0.0 - 10.0 /100 WBCs. The reference range was not used to interpret this result as normal/abnormal. NRBC x10^3 (test code = 0426117389) See_Comment [Automated messa ge] The system which generated this result transmitted reference range: 10*3/?L. The reference range was not used to interpret this result as normal/abnormal. GRAN MAT (NEUT) % (test code = 770-8) 55.1 % IMM GRAN % (test code = 3529957781) 0.20 % LYMPH % (test code = 736-9) 29.9 % MONO % (test code = 5905-5) 8.8 % EOS % (test code = 713-8) 5.3 % BASO % (test code = 706-2) 0.7 % GRAN MAT x10^3(ANC) (test code = 1800931592) 3.30 10*3/uL 1.88-7.09 IMM GRAN x10^3 (test code = 3672033765) 0.00-0.06 LYMPH x10^3 (test code = 731-0) 1.79 10*3/uL 1.32-3.29 MONO x10^3 (test code = 742-7) 0.53 10*3/uL 0.33-0.92 EOS x10^3 (test code = 711-2) 0.32 10*3/uL 0.03-0.39 BASO x10^3 (test code = 704-7) 0.04 10*3/uL 0.01-0.07 Lab Interpretation (test code = 08502-9) Abnormal [facility]"
[2023-05-20 16:50] LABS: Absolute Basophils 0.1 K/uL (0-0.5); Absolute Eosinophils 0.2 K/uL (0-0.5); Absolute Lymphocytes (CBC) 1.6 K/uL (0.7-4.9); Absolute Monocytes 0.5 K/uL (0.1-1.3); Absolute Neutrophil 5.6 K/uL (1.8-8.0); Basophils % 1.1 % (0-1.3); Eosinophils % 2.6 % (0-4.4); Hematocrit 43.7 % (36.0-45.0); Hemoglobin 15.1 g/dL (12.0-15.0); Lymphocytes % 19.9 % (15.3-44.8); MCH 32.7 pg (27.0-35.0); MCHC 34.6 g/dL (32.0-36.0); MCV 94.5 fL (80-100); MPV 8.5 fL (7.6-11.3); Neutrophils % 70.4 % (41.7-73.7); Nucleated Red Blood Cells % 0.1 % (0-0); Platelets 229 thou/uL (152-406); RBC Red Blood Cell Count 4.62 M/uL (3.86-4.86); Red Cell Distribution Width 12.6 % (12.1-15.2)
[2023-05-20 16:53] LABS: PT Prothrombin Time 12.4 SECONDS (9.5-12.5); PTT, Activated Partial Thromb 31.8 SECONDS (24.3-36.9); Protime INR 1.13
[2023-05-20 17:06] LABS: Albumin 4.3 g/dL (3.4-5.0); Albumin/Globulin Ratio 1.3 (1.1-1.8); Anion Gap 9.4 mEq/L (5.0-15.0); Bilirubin Total 0.6 mg/dL (0.2-1.0); Globulin 3.4 g/dL (2.3-3.5); Magnesium 2.1 mg/dL (1.6-2.4); Potassium 3.4 mEq/L (3.5-5.1); Protein, Total 7.7 g/dL (6.4-8.2)
[2023-05-20 17:23] LABS: Specific Gravity 1.006 (1.005-1.030); Sqamous Epithelial <5 /HPF (None Seen); Urine Bacteria None Seen /HPF (<20); Urine Bilirubin NEGATIVE (Negative); Urine Blood Trace (Negative); Urine Clarity Turbid (Clear); Urine Color Light-Yellow (Yellow); Urine Culture Reflex Order NOT NEEDED; Urine Glucose NEGATIVE (Negative); Urine Ketones 1+ (Negative); Urine Microscopic Reflex YN ORDER UMIC; Urine Nitrite NEGATIVE (Negative); Urine Protein NEGATIVE (Negative); Urine RBC <5 /HPF (None Seen); Urine Urobilinogen Normal (Normal); Urine WBC <5 /HPF (<5)
--- NOTE | 2023-05-20 19:22 | RAD REPORT ---
EXAM DESCRIPTION: CTAbdomen Pelvis W Contrast - 05/20/2023 7:15 pm CLINICAL HISTORY: Abdominal pain. ABD PAIN COMPARISON: Abdomen Pelvis W Contrast dated 03/07/2021; Abdomen Pelvis W Contrast dated 07/06/2020; Abdomen Pelvis W Contrast dated 04/26/2016; Abdomen Pelvis W Contrast dated 06/17/2015 TECHNIQUE: Biphasic CT imaging of the abdomen and pelvis was performed with 100 ml non-ionic IV cont rast. All CT scans are performed using dose optimization technique as appropriate and may include automated exposure control or mA/KV adjustment according to patient size. FINDINGS: The lung bases are clear. The liver, spleen, pancreas, adrenal glands and kidneys are within normal limits. No bowel obstruction, free air, free fluid or abscess. The appendix is normal. No evidence of signi ficant lymphadenopathy. No suspicious bony findings. IMPRESSION: No acute intra-abdominal or pelvic finding.
--- NOTE | 2023-05-20 20:07 | ER ---
Nurse's Notes [facility] Name: Isa Suarez Age: 42 yrs Sex: Female : 1980 Arrival Date: 05/20/2023 Time: 15:13 Bed 14 Private MD: Diagnosis: Nausea with vomiting, unspecified;Other malaise;Syncope Near Presentation: 05/19 15:19 Chief complaint: Patient states: she was seen by her pcp for pain in her flank area, ap3 and nausea approx one week ago. Patient reports starting Cipro at that time. patient states she is feeling worse since then, with increased nausea and weakness. Coronavirus screen: At this time, the client does not indicate any symptoms associated with coronavirus-19. Ebola Screen: No symptoms or risks identified at this time. Initial Sepsis Screen: Does the patient meet any 2 criteria? HR > 90 bpm. Does the patient have a suspected source of infection? No. Patient's initial sepsis screen is negative. Risk Assessment: Do you want to hurt yourself or someone else? Patient reports no desire to harm self or others. Onset of symptoms was May 13, 2023. 15:19 Method Of Arrival: Ambulatory ap3 15:19 Acuity: VON 3 ap3 Triage Assessment: 15:23 General: Appears in no apparent distress. Behavior is calm, cooperative. Pain: ap3 Complains of pain in left and right flank. Pain: Pain currently is 8 out of 10 on a pain scale. Neuro: Level of Consciousness is awake, alert, obeys commands, Oriented to person, place, time, situation. Cardiovascular: Patient's skin is warm and dry. Respiratory: Airway is patent Respiratory effort is even, unlabored, Respiratory pattern is regular, symmetrical. GI: Reports lower abdominal pain. : Reports pain in right in left flank(s). 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 - Social history:: Smoking status: Patient reports the use of cigarette tobacco products. Screenin:24 Abuse screen: Denies threats or abuse. Nutritional screening: No deficits noted. ap3 Tuberculosis screening: No symptoms or risk factors identified. 17:21 [facility] ED Fall Risk Assessment (Adult) History of falling in the last 3 months, kc6 including since admission No falls in past 3 months (0 pts) Confusion or Disorientation No (0 pts) Intoxicated or Sedated No (0 pts) Impaired Gait No (0 pts) Mobility Assist Device Used No (0 pt) Altered Elimination No (0 pt) Score/Fall Risk Level 0 - 2 = Low Risk. Assessment: 16:59 Reassessment: Patient and/or family updated on plan of care and expected duration. Pain ap3 level reassessed. Patient is alert, oriented x 3, equal unlabored respirations, skin warm/dry/pink. General: Appears uncomfortable, Behavior is cooperative, appropriate for age. Pain: Complains of pain in left lower quadrant and left upper quadrant. Neuro: Level of Consciousness is awake, alert, obeys commands, Oriented to person, place, time, situation. Cardiovascular: Patient's skin is warm and dry. Respiratory: Airway is patent Respiratory effort is even, unlabored, Respiratory pattern is regular, symmetrical. 17:22 General: Appears in no apparent distress. uncomfortable, slender, well groomed, well kc6 developed, Behavior is calm, cooperative, appropriate for age. Pain: Complains of pain in left lower quadrant and left upper quadrant. Neuro: Level of Consciousness is awake, alert, obeys commands, Oriented to person, place, time, situation, Appropriate for age. Cardiovascular: Capillary refill < 3 seconds. Respiratory: Airway is patent Trachea midline Respiratory effort is even, unlabored, Respiratory pattern is regular, symmetrical. GI: Reports lower abdominal pain, diarrhea, nausea, vomiting. : No signs and/or symptoms were reported regarding the genitourinary system. EENT: No signs and/or symptoms were reported regarding the EENT system. Derm: No signs and/or symptoms reported regarding the dermatologic system. Skin is intact, is healthy with good turgor, Skin is pink, warm \T\ dry. Musculoskeletal: No signs and/or symptoms reported regarding the musculoskeletal system. Circulation, motion, and sensation intact. Capillary refill < 3 seconds, Range of motion: intact in all extremities. 18:12 Reassessment: Patient appears in no apparent distress at this time. No changes from kc6 previously documented assessment. Patient and/or family updated on plan of care and expected duration. Pain level reassessed. Patient is alert, oriented x 3, equal unlabored respirations, skin warm/dry/pink. 20:23 Reassessment: Patient and/or family updated on plan of care and expected duration. Pain tm6 level reassessed. Patient is alert, oriented x 3, equal unlabored respirations, skin warm/dry/pink. Vital Signs: 15:19 BP 109 / 75; Pulse 93; Resp 17; Temp 98.8; Pulse Ox 100% ; Weight 47.17 kg; Height 5 ap3 ft. 6 in. ; Pain 6/10; 17:21 BP 118 / 73 LA Supine (auto/reg); Pulse 76; ty 17:21 BP 101 / 75 LA Sitting (auto/reg); Pulse 81; ty 17:21 BP 111 / 76 LA Standing (auto/reg); Pulse 87; ty 18:13 BP 112 / 71; Pulse 65; Resp 16 S; Pulse Ox 99% on R/A; kc6 18:56 BP 105 / 76; Pulse 65; Resp 16 S; Pulse Ox 99% on R/A; kc6 20:23 BP 105 / 65; Pulse 74; Resp 18; Temp 98.1(O); Pulse Ox 97% on R/A; Pain 3/10; tm6 15:19 Body Mass Index 16.79 (47.17 kg, 167.64 cm) ap3 15:19 Pain Scale: Adult ap3 20:23 Pain Scale: Adult tm6 ED Course: 15:16 Patient arrived in ED. im 15:17 Meli Cui FNP-C is PHCP. kb 15:17 Haseeb Nevarez MD is Attending Physician. kb 15:23 Triage completed. ap3 15:24 Arm band placed on left wrist. ap3 16:41 Initial lab(s) drawn, by me, sent to lab. Inserted saline lock: 22 gauge in right ap3 antecubital area, using aseptic technique. Blood collected. 17:14 Pearl Harris, MOOKIE is Primary Nurse. 6 17:14 Urine collected: clean catch specimen. ap3 17:21 Patient has correct armband on for positive identification. Bed in low position. Call kc6 light in reach. Side rails up X 1. Client placed on continuous cardiac and pulse oximetry monitoring. NIBP monitoring applied. 17:21 Patient maintains SpO2 saturation greater than 95% on room air. kc6 17:23 Bed in low position. Call light in reach. Side rails up X2. Warm blanket given. Cardiac ty monitor on. Pulse ox on. 19:17 CT Abd/Pelvis - IV Contrast Only In Process Unspecified. EDMS 20:24 Provided Education on: follow up with PCP. tm6 20:24 No provider procedures requiring assistance completed. IV discontinued, intact, tm6 bleeding controlled, No redness/swelling at site. Pressure dressing applied. Administered Medications: 16:49 Drug: Ondansetron IVP 4 mg IVP once; over 2 minutes Route: IVP; Site: right antecubital;ap3 18:36 Follow up: Response: No adverse reaction; Nausea is decreased kc6 16:49 Drug: NS 0.9% IV 1000 ml IV at 1000 ml once Route: IV; Rate: 1000 ml; Site: right ap3 antecubital; 18:36 Follow up: Response: No adverse reaction; IV Status: Completed infusion; IV Intake: kc6 1000ml 18:56 Drug: Ketorolac IVP 15 mg IVP once Route: IVP; Site: right antecubital; kc6 Medication: 20:24 VIS not applicable for this client. tm6 Intake: 18:36 IV: 1000ml; Total: 1000ml. kc6 Outcome: 20:06 Discharge ordered by . kb 20:24 Discharged to home ambulatory, tm6 20:24 Condition: stable 20:24 Discharge instructions given to patient, Instructed on discharge instructions, follow up and referral plans. Demonstrated understanding of instructions, follow-up care, 20:24 Patient left the ED. tm6 Signatures: Dispatcher [employer] EDMS Meli Cui, SPARKLE PEREZ-Michelle Vital RN RN ap3 Pearl Harris RN RN kc6 Martha Leslie Tawney RN RN tm6 Roldan Rascon
--- NOTE | 2023-05-20 20:07 | EDPHYS ---
Physician Documentation [facility] Name: Isa Suarez Age: 42 yrs Sex: Female : 1980 Arrival Date: 05/20/2023 Time: 15:13 Bed 14 Private MD: ED Physician Haseeb Nevarez HPI: 05/19 15:30 This 42 yrs old Female presents to ER via Ambulatory with complaints of kb Nausea/Vomiting/Diarrhea, Dizziness. 15:30 Pt is a 42 year old female who presents with nausea, vomiting, bilateral lateral abd kb pain, intermittent fever, malaise and weakness for 2 weeks. was seen by PCP and prescribed cipro for a possible kidney infection which she has completed, but she hasn't felt any better. States her boss told her to come in for eval today because she felt like she was going to pass out. 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 - Social history:: Smoking status: Patient reports the use of cigarette tobacco products. ROS: 15:28 Constitutional: As per HPI kb Exam: 15:28 Constitutional: This is a well developed, well nourished patient who is awake, alert, kb and in no acute distress. Head/Face: Normocephalic, atraumatic. ENT: Moist Mucous membranes Cardiovascular: Regular rate Respiratory: Respirations even and unlabored. No increased work of breathing. Talking in full sentences Skin: Warm, dry with normal turgor. Normal color. MS/ Extremity: Pulses equal, no cyanosis. Neurovascular intact. Full, normal range of motion. Neuro: Awake and alert, GCS 15, oriented to person, place, time, and situation. Moves all extremities. Normal gait. 15:28 Abdomen/GI: Inspection: abdomen appears normal, Bowel sounds: normal, Palpation: soft, in all quadrants, mild abdominal tenderness, in the left upper quadrant and left lower quadrant, Vital Signs: 15:19 BP 109 / 75; Pulse 93; Resp 17; Temp 98.8; Pulse Ox 100% ; Weight 47.17 kg; Height 5 ap3 ft. 6 in. ; Pain 6/10; 17:21 BP 118 / 73 LA Supine (auto/reg); Pulse 76; ty 17:21 BP 101 / 75 LA Sitting (auto/reg); Pulse 81; ty 17:21 BP 111 / 76 LA Standing (auto/reg); Pulse 87; ty 18:13 BP 112 / 71; Pulse 65; Resp 16 S; Pulse Ox 99% on R/A; kc6 18:56 BP 105 / 76; Pulse 65; Resp 16 S; Pulse Ox 99% on R/A; kc6 20:23 BP 105 / 65; Pulse 74; Resp 18; Temp 98.1(O); Pulse Ox 97% on R/A; Pain 3/10; tm6 15:19 Body Mass Index 16.79 (47.17 kg, 167.64 cm) ap3 15:19 Pain Scale: Adult ap3 20:23 Pain Scale: Adult tm6 MDM: 15:17 Patient medically screened. kb 15:28 Differential diagnosis: Nonspecific abd pain, diverticulitis, uti, pyelonephritis. Data kb reviewed: vital signs, nurses notes. 20:04 Counseling: I had a detailed discussion with the patient and/or guardian regarding the kb historical points, exam findings, and any diagnostic results supporting the discharge/admit diagnosis, lab results, radiology results, the need for outpatient follow up, a family practitioner, to return to the emergency department if symptoms worsen or persist or if there are any questions or concerns that arise at home. ED course: Discussed all results with pt and gave printed copy. Pt states she normally gets sick when she takes cipro so that could be the reason, but she wanted to make sure it wasn't anything else. 05/19 15:28 Order name: CBC with Diff; Complete Time: 17:01 kb 05/19 15:28 Order name: Magnesium; Complete Time: 17:08 kb 05/19 15:28 Order name: Test, Urine; Complete Time: 17:24 kb 05/19 15:28 Order name: Protime (+inr); Complete Time: 17:01 kb 05/19 15:28 Order name: Ptt, Activated; Complete Time: 17:01 kb 05/19 15:28 Order name: Troponin High Sensitivity; Complete Time: 17:08 kb 05/19 15:28 Order name: Urinalysis w/ reflexes; Complete Time: 17:24 kb 05/19 15:28 Order name: CMP; Complete Time: 17:08 kb 05/19 18:47 Order name: CT Abd/Pelvis - IV Contrast Only; Complete Time: 19:36 kb 05/19 15:28 Order name: EKG; Complete Time: 15:55 kb 05/19 15:28 Order name: Cardiac monitoring; Complete Time: 17:20 kb 05/19 15:28 Order name: EKG - Nurse/Tech; Complete Time: 17:20 kb 05/19 15:28 Order name: IV Saline Lock; Complete Time: 16:41 kb 05/19 15:28 Order name: Labs collected and sent; Complete Time: 16:41 kb 05/19 15:28 Order name: NPO; Complete Time: 16:41 kb 05/19 15:28 Order name: O2 Per Protocol; Complete Time: 17:20 kb 05/19 15:28 Order name: O2 Sat Monitoring; Complete Time: 17:20 kb 05/19 15:28 Order name: Orthostatics; Complete Time: 17:20 kb Administered Medications: 16:49 Drug: Ondansetron IVP 4 mg IVP once; over 2 minutes Route: IVP; Site: right antecubital;ap3 18:36 Follow up: Response: No adverse reaction; Nausea is decreased kc6 16:49 Drug: NS 0.9% IV 1000 ml IV at 1000 ml once Route: IV; Rate: 1000 ml; Site: right ap3 antecubital; 18:36 Follow up: Response: No adverse reaction; IV Status: Completed infusion; IV Intake: kc6 1000ml 18:56 Drug: Ketorolac IVP 15 mg IVP once Route: IVP; Site: right antecubital; kc6 Disposition Summary: 05/20/23 20:06 Discharge Ordered Notes: Location: Home kb Condition: Stable kb Diagnosis - Nausea with vomiting, unspecified kb - Other malaise kb - Syncope Near kb Followup: kb - With: Emergency Department - When: As needed - Reason: Worsening of condition Followup: kb - With: Private Physician - When: 2 - 3 days - Reason: Recheck today's complaints, Continuance of care, Re-evaluation by your physician Discharge Instructions: - Discharge Summary Sheet kb - Nausea and Vomiting, Adult, [id number] kb - Near-Syncope, [id number] kb Forms: - Work release form kb - Medication Reconciliation Form kb - Thank You Letter kb - Antibiotic Education kb - Prescription Opioid Use kb - Patient Portal Instructions kb - Leadership Thank You Letter kb Signatures: Dispatcher [employer] Meli Holman, CHRIS-C Michelle Taylor RN RN ap3 Pearl Harris RN RN kc6
[2023-05-20 21:17] VITALS: BP 105/65; TEMP 98.1; O2SAT 97
== END ==
LOC: ER 15:13
DX: R11.2 Nausea with vomiting, unspecified (principal); R53.81 Other malaise; R55 Syncope and collapse
CPT/HCPCS: 36415; 74177; 80053; 81001; 81025; 83735; 84484; 85025; 85610; 85730; 93005; J2405; J7030; Q9967

== ENCOUNTER 2023-10-29 10:57 | Emergency (ER) | payer OTHER, SELFPAY ==
[2023-10-29] MEDS ORDERED: KETOROLAC 30 MG/ML INJ ONE (11:31)
[2023-10-29] MEDS ORDERED: CYCLOBENZAPRINE 10 MG TAB ONE (11:32)
--- NOTE | 2023-10-29 11:47 | RAD REPORT ---
EXAM DESCRIPTION: CT - Stone Protocol - 10/29/2023 11:34 am CLINICAL HISTORY: Abdominal pain. Back pain COMPARISON: None. TECHNIQUE: Computed axial tomography of the abdomen pelvis was obtained without oral or IV contrast. Lack of IV and oral contrast limits evaluation of solid organs, appendix, bowel, and vessels. Alarcon l reformatted images were obtained and reviewed. All CT scans are performed using dose optimization technique as appropriate and may include automated exposure control or mA/KV adjustment according to patient size. FINDINGS: A renal calculus is not seen. An ureteral calculus is not noted. A bladder calculus is not present. No hydronephrosis The liver, spleen, pancreas and adrenals appear grossly normal There is no evidence of diverticulitis. A hysterectomy. No adnexal mass IMPRESSION: Negative for a genitourinary calculus
--- NOTE | 2023-10-29 13:05 | EDPHYS ---
Physician Documentation [facility] Name: Isa Suarez Age: 43 yrs Sex: Female : 1980 Arrival Date: 10/29/2023 Time: 10:57 Bed 15 Private MD: ED Physician Haseeb Nevarez HPI: 10/28 12:57 This 43 yrs old Female presents to ER via Ambulatory with complaints of Back Injury - rn Work related. 13:02 The patient presents with pain that is acute. The symptoms are located in the low back. rn 13:02 Onset: The symptoms/episode began/occurred yesterday. Associated signs and symptoms: rn Pertinent positives: none Pertinent negatives: fever, hematuria, incontinence, nausea, numbness, tingling, urinary retention. Modifying factors: The patient symptoms are alleviated by nothing, the patient symptoms are aggravated by any movement. Severity of symptoms: At their worst the symptoms were moderate, in the emergency department the symptoms have improved. The patient has not experienced similar symptoms in the past. 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 Try to go back to work today with increased pain and sent here for further evaluation. No bowel or bladder issues. No incontinence. No weakness.. 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 - Infectious Disease History:: Denies. - Social history:: Smoking status: Patient denies any tobacco usage or history of. - Family history:: not pertinent. - Hospitalizations: : No recent hospitalization is reported. ROS: 13:02 Constitutional: Negative for fever, chills, and weight loss, Abdomen/GI: Positive for rn abdominal wall pain Back: Positive for low back pain : Negative for injury, bleeding, discharge, and swelling, MS/Extremity: Negative for injury and deformity, Neuro: Negative for headache, weakness, numbness, tingling, and seizure, Exam: 13:02 Constitutional: This is a well developed, well nourished patient who is awake, alert, rn and in no acute distress. Cardiovascular: Regular rate and rhythm. No pulse deficits. Abdomen/GI: Soft, no ecchymosis or skin discoloration. No focal tenderness. No masses. No hernia. Back: No spinal tenderness. No costovertebral tenderness. Full range of motion. MS/ Extremity: Pulses equal, no cyanosis. Neurovascular intact. Full, normal range of motion. Equal circumference. Neuro: Awake and alert, GCS 15. Motor strength 5/5 in all extremities. Sensory grossly intact. Cerebellar exam normal. Normal gait. Vital Signs: 11:10 BP 132 / 92; Pulse 82; Resp 16; Temp 97; Pulse Ox 100% on R/A; Weight 45.36 kg; Height ll1 5 ft. 6 in. ; Pain 7/10; 13:18 BP 107 / 69; Pulse 57; Resp 14; Temp 98.2; Pulse Ox 100% on R/A; me1 11:10 Body Mass Index 16.14 (45.36 kg, 167.64 cm) ll1 11:10 Pain Scale: Adult ll1 MDM: 11:07 Patient medically screened. rn 13:02 Differential diagnosis: Osteoarthritis sprain, Muscular strain, strain of rectus rn abdominis. Data reviewed: vital signs, nurses notes, radiologic studies, CT scan, and as a result, I will discharge patient. Counseling: I had a detailed discussion with the patient and/or guardian regarding the historical points, exam findings, and any diagnostic results supporting the discharge/admit diagnosis, radiology results, the need for outpatient follow up, to return to the emergency department if symptoms worsen or persist or if there are any questions or concerns that arise at home. Special discussion: I discussed with the patient/guardian in detail that at this point there is no indication for admission to the hospital. It is understood, however, that if the symptoms persist or worsen the patient needs to return immediately for re-evaluation. 10/28 11:14 Order name: CT Stone Protocol rn Administered Medications: 11:42 Drug: Cyclobenzaprine PO 10 mg PO once Route: PO; mb9 12:11 Follow up: Response: No adverse reaction mb9 11:43 Drug: Ketorolac IM 15 mg IM once Route: IM; Site: right deltoid; mb9 12:11 Follow up: Response: No adverse reaction mb9 Disposition Summary: 10/29/23 13:05 Discharge Ordered Notes: Location: Home rn Problem: new rn Symptoms: are unchanged rn Condition: Stable rn Diagnosis - Strain of muscle, fascia and tendon of lower back rn - Strain of muscle, fascia and tendon of abdomen rn Followup: rn - With: Private Physician - When: As needed - Reason: Recheck today's complaints, Re-evaluation by your physician Discharge Instructions: - Discharge Summary Sheet rn - Acute Back Pain, Adult rn - Muscle Strain rn Forms: - Medication Reconciliation Form rn - Antibiotic director internal control - Prescription Opioid Use rn - Patient Portal Instructions rn - Leadership Thank You Letter rn - Work release form me1 Prescriptions: - Cyclobenzaprine 10 mg Oral tablet - take 1 tablet ORAL route every 8 hours As needed; 14 tablet; Refills: 0, rn Product Selection Permitted Signatures: Dispatcher [employer] Haseeb Archuleta MD MD rn Lewis, Lynsay RN RN ll1 Marija Hess RN RN mb9
--- NOTE | 2023-10-29 13:05 | ER ---
Nurse's Notes [facility] Name: Isa Suarez Age: 43 yrs Sex: Female : 1980 Arrival Date: 10/29/2023 Time: 10:57 Bed 15 Private MD: Diagnosis: Strain of muscle, fascia and tendon of lower back;Strain of muscle, fascia and tendon of abdomen Presentation: 10/28 11:10 Chief complaint: Patient states: Moving heavy cases yesterday at work. [place] a pull when ll1 lifting, pain severe after finishing. Back/abdomen pain since. Into hips. Coronavirus screen: Client denies travel out of the [place] in the last 14 days. At this time, the client does not indicate any symptoms associated with coronavirus-19. Ebola Screen: Patient denies travel to an Ebola-affected area in the 21 days before illness onset. Initial Sepsis Screen: Does the patient meet any 2 criteria? No. Patient's initial sepsis screen is negative. Does the patient have a suspected source of infection? No. Patient's initial sepsis screen is negative. Risk Assessment: Do you want to hurt yourself or someone else? Patient reports no desire to harm self or others. Onset of symptoms was October 28, 2023. 11:10 Method Of Arrival: Ambulatory ll1 11:10 Acuity: VON 3 ll1 Triage Assessment: 11:12 General: Appears uncomfortable, Behavior is calm, cooperative, appropriate for age. ll1 Pain: Complains of pain in back Pain currently is 7 out of 10 on a pain scale. Quality of pain is described as aching. GI: Reports lower abdominal pain, upper abdominal pain. Musculoskeletal: Reports pain in back. [employer]: 11:44 LMP N/A - , Not mb9 Historical: - Allergies: 11:12 Ciprofloxacin; ll1 11:12 Sudafed; ll1 - PMHx: 11:12 past history of renal failure; ll1 - PSHx: 11:12 section; Total abdominal hysterectomy; ll1 - Immunization history:: Adult Immunizations up to date. - Infectious Disease History:: Denies. - Social history:: Smoking status: Patient denies any tobacco usage or history of. - Family history:: not pertinent. - Hospitalizations: : No recent hospitalization is reported. Screenin:43 [facility] ED Fall Risk Assessment (Adult) History of falling in the last 3 months, mb9 including since admission No falls in past 3 months (0 pts) Confusion or Disorientation No (0 pts) Intoxicated or Sedated No (0 pts) Impaired Gait No (0 pts) Mobility Assist Device Used No (0 pt) Altered Elimination No (0 pt) Score/Fall Risk Level 0 - 2 = Low Risk Oriented to surroundings, Maintained a safe environment, Educated pt \T\ family on fall prevention, incl call for assistance when getting out of bed, Assessed \T\ reinforced patient's understanding of fall precautions. Abuse screen: Denies threats or abuse. Nutritional screening: No deficits noted. Tuberculosis screening: No symptoms or risk factors identified. Assessment: 11:43 General: Appears in no apparent distress. Behavior is calm, cooperative. Pain: mb9 Complains of pain in back. Neuro: Rosenberg Agitation-Sedation Scale (RASS): 0 - Alert and Calm Level of Consciousness is awake, alert, obeys commands, Oriented to person, place, time, situation, Appropriate for age. Cardiovascular: Patient's skin is warm and dry. Respiratory: Airway is patent Respiratory effort is even, unlabored, Respiratory pattern is regular, symmetrical. GI: No signs and/or symptoms were reported involving the gastrointestinal system. : No signs and/or symptoms were reported regarding the genitourinary system. EENT: No signs and/or symptoms were reported regarding the EENT system. Derm: Skin is pink, warm \T\ dry. Musculoskeletal: Range of motion: intact in all extremities. Vital Signs: 11:10 BP 132 / 92; Pulse 82; Resp 16; Temp 97; Pulse Ox 100% on R/A; Weight 45.36 kg; Height ll1 5 ft. 6 in. ; Pain 7/10; 13:18 BP 107 / 69; Pulse 57; Resp 14; Temp 98.2; Pulse Ox 100% on R/A; me1 11:10 Body Mass Index 16.14 (45.36 kg, 167.64 cm) ll1 11:10 Pain Scale: Adult ll1 ED Course: 11:04 Patient arrived in ED. ra3 11:07 Haseeb Nevarez MD is Attending Physician. rn 11:12 Triage completed. ll1 11:12 Arm band placed on. ll1 11:23 Patient placed in an exam room, on a stretcher. iw 11:23 Door closed. Lights dimmed. Warm blanket given. iw 11:31 Marija Hess, RN is Primary Nurse. mb9 11:34 CT Stone Protocol In Process Unspecified. EDMS 11:44 Placed in gown. Bed in low position. Call light in reach. Side rails up X 1. Provided mb9 Education on: press call light if needing anything. Client placed on continuous cardiac and pulse oximetry monitoring. NIBP monitoring applied. 11:44 No provider procedures requiring assistance completed. Patient did not have IV access mb9 during this emergency room visit. Administered Medications: 11:42 Drug: Cyclobenzaprine PO 10 mg PO once Route: PO; mb9 12:11 Follow up: Response: No adverse reaction mb9 11:43 Drug: Ketorolac IM 15 mg IM once Route: IM; Site: right deltoid; mb9 12:11 Follow up: Response: No adverse reaction mb9 Medication: 11:44 VIS not applicable for this client. mb9 Outcome: 13:05 Discharge ordered by . mookie 13:18 Discharged to home ambulatory, me1 13:18 Condition: stable 13:18 Discharge instructions given to patient, Instructed on discharge instructions, follow up and referral plans. medication usage, Demonstrated understanding of instructions, follow-up care, medications, Prescriptions given X 1, 13:19 Patient left the ED. me1 Signatures: Dispatcher [employer] Ijeoma Bustillos, MOOKIE DAMICO iw Haseeb Nevarez MD MD rn Lewis, Lynsay, RN RN ll1 Marija Hess, RN Michela Mai RN RN nm1 Cindy Parsons ra3 Corrections: (The following items were deleted from the chart) 11:15 11:10 Pulse 82bpm; Resp 16bpm; Pulse Ox 100% RA; Temp 97F; Pain 7/10, Adult; ll1 ll1
[2023-10-29 13:30] VITALS: O2SAT 100
[2023-10-29 13:35] VITALS: BP 107/69; TEMP 98.2
== END 2023-10-29 13:19 | disposition home or self-care (01) ==
LOC: ER 10:57
DX: S39.012A Strain of muscle, fascia and tendon of lower back, initial encounter (principal); S39.011A Strain of muscle, fascia and tendon of abdomen, initial encounter; X50.0XXA Overexertion from strenuous movement or load, initial encounter; Y99.0 Civilian activity done for income or pay
CPT/HCPCS: 74176; 76377